=== PATIENT | male | born 1980 | race Caucasian/White ===

== ENCOUNTER 2017-02-11 01:05 | Inpatient (IN) | payer MEDICAID, OTHER ==
[2017-02-11 01:06] VITALS: BMI 32.5
--- NOTE | 2017-02-11 01:27 | ED PDOC ---
Arrival/HPI - General Historian: Patient <Frankie Smith - Last Filed: 02/11/17 01:10> <Juan A Oropeza - Last Filed: 02/11/17 01:32> - General Time Seen by Provider: 02/11/17 01:10 - History of Present Illness Narrative History of Present Illness (Text): 02/11/17 01:11 36 y/o male, psychiatric history including alcohol and drug abuse/bipolar disorder/depression, nkda, biba for psychiatric admission for depression plus the alcohol/drug abuse. Pt. accepted by Dr. Aracelis conroy and sign off to the current ER attending DR. Oropeza which they reviewed the labs/radiology and ekg. Pt. stated that he feels well, no nausea or vomiting, no homicidal or suicidal ideation, no auditory or visual hallucination, no chest pain or shortness of breath, no palpitation, no medical complaints in the ER. (Frankie Smith) Past Medical History - Provider Review Nursing Documentation Reviewed: Yes - Infectious Disease Hx of Infectious Diseases: None - Reproductive Currently : No - Cardiac Hx Cardiac Disorders: No - Pulmonary Hx Respiratory Disorders: No - Neurological Hx Neurological Disorder: No - HEENT Hx HEENT Disorder: No - Renal Hx Renal Disorder: No - Endocrine/Metabolic Hx Endocrine Disorders: No - Hematological/Oncological Hx Blood Disorders: No - Integumentary Hx Dermatological Disorder: No - Musculoskeletal/Rheumatological Hx Musculoskeletal Disorders: No - Gastrointestinal Hx Gastrointestinal Disorders: No - Genitourinary/Gynecological Hx Genitourinary Disorders: No - Psychiatric Hx Psychophysiologic Disorder: Yes Hx Depression: Yes Hx Substance Use: No (pt denies) - Surgical History Hx Appendectomy: Yes - Anesthesia Hx Anesthesia: No - Suicidal Assessment Feels Threatened In Home Enviroment: No <Frankie Smith - Last Filed: 02/11/17 01:10> Family/Social History - Physician Review Nursing Documentation Reviewed: Yes Family/Social History: Unknown Family HX Smoking Status: Heavy Smoker > 10 Cigarettes Daily Hx Alcohol Use: Yes Hx Substance Use: No (pt denies) Substance used: Cocaine <Frankie Smith - Last Filed: 02/11/17 01:10> Allergies/Home Meds <Frankie Smith - Last Filed: 02/11/17 01:10> <Juan A Oropeza - Last Filed: 02/11/17 01:32> Allergies/Adverse Reactions: Allergies No Known Allergies Allergy (Verified 01/13/16 13:19) Review of Systems - Review of Systems Constitutional: absent: Fatigue, Fevers Eyes: absent: Vision Changes ENT: absent: Hearing Changes Respiratory: absent: SOB, Cough, Sputum, Wheezing Cardiovascular: absent: Chest Pain Gastrointestinal: absent: Abdominal Pain, Nausea, Vomiting Skin: absent: Rash, Pruritis, Skin Lesions, Laceration, Abscess, Ulcer, Cellulitis Neurological: absent: Headache, Dizziness, Focal Weakness, Gait Changes, Speech Changes, Facial Droop, Disequilibrium, Seizure Psychiatric: absent: Anxiety, Depression, Suicidal Ideation <Frankie Smith - Last Filed: 02/11/17 01:10> Physical Exam Vital Signs Reviewed: Yes Temperature: Afebrile Blood Pressure: Normal Pulse: Regular Respiratory Rate: Normal Appearance: Positive for: Well-Appearing, Non-Toxic, Comfortable Pain Distress: None Mental Status: Positive for: Alert and Oriented X 3 - Systems Exam Head: Present: Atraumatic, Normocephalic Pupils: Present: PERRL Extroacular Muscles: Present: EOMI Conjunctiva: Present: Normal Mouth: Present: Moist Mucous Membranes Neck: Present: Normal Range of Motion Respiratory/Chest: Present: Clear to Auscultation, Good Air Exchange. No: Respiratory Distress, Accessory Muscle Use Cardiovascular: Present: Regular Rate and Rhythm, Normal S1, S2. No: Murmurs Abdomen: Present: Normal Bowel Sounds. No: Tenderness, Distention, Peritoneal Signs Back: Present: Normal Inspection Upper Extremity: Present: Normal Inspection. No: Cyanosis, Edema Lower Extremity: Present: Normal Inspection. No: Edema Neurological: Present: GCS=15, CN II-XII Intact, Speech Normal Skin: Present: Warm, Dry, Normal Color. No: Rashes Psychiatric: Present: Alert, Oriented x 3, Normal Insight, Normal Concentration <Frankie Smith - Last Filed: 02/11/17 01:10> Vital Signs Temp Pulse Resp BP Pulse Ox 02/11/17 01:12 97.7 F 63 18 112/62 97 Medical Decision Making <Frankie Smith - Last Filed: 02/11/17 01:10> <Juan A Oropeza - Last Filed: 02/11/17 01:32> ED Course and Treatment: 02/11/17 01:28 -I reviewed labs/chest x-ray result and ekg copy with Dr. Oropeza, he agreed that the patient is medically clear and stable to be admitted to Dr. Geno Cowart for psychiatric admission. -Dr. Oropeza will put in the admission. (Frankie Smith) - PA / CARD PUNCHING MACHINE OPERATOR / Resident Statement CHAN has reviewed & agrees with the documentation as recorded. <Frankie Smith - Last Filed: 02/11/17 01:10> - PA / CARD PUNCHING MACHINE OPERATOR / Resident Statement CHAN has reviewed & agrees with the documentation as recorded. CHAN has examined the patient and agrees with the treatment plan. <Juan A Oropeza - Last Filed: 02/11/17 01:32> Disposition/Present on Arrival - Present on Arrival Any Indicators Present on Arrival: No History of DVT/PE: No History of Uncontrolled Diabetes: No Urinary Catheter: No History of Decub. Ulcer: No History Surgical Site Infection Following: None - Disposition Have Diagnosis and Disposition been Completed?: Yes Disposition Time: 01:30 Patient Plan: Admission <Frankie Smith - Last Filed: 02/11/17 01:10> <Juan A Oropeza - Last Filed: 02/11/17 01:32> - Disposition Diagnosis: Major depression, Drug abuse, Substance abuse, Alcohol abuse Disposition: HOSPITALIZED Patient Problems: Current Active Problems Problem Status Diagnosed Alcohol use disorder Acute Amphetamine overdose Acute Bipolar 1 disorder Acute DVT prophylaxis Acute Depression Acute Intoxication Acute Psychiatric disorder Acute Suicidal ideations Acute Transaminitis Acute Condition: STABLE
[2017-02-11] MEDS ORDERED: DiphenhydrAMINE 50 mg/ml Inj IM PRN (02:43)
[2017-02-11] MEDS ORDERED: Magnesium Hydroxide Susp 30 ml UD PO PRN (02:49)
[2017-02-11] MEDS ORDERED: Alum-Mag Hydrox-Simethicone Susp (30 mL) PO PRN (02:49)
[2017-02-11 04:00] VITALS: O2SAT 99
[2017-02-11 08:41] LABS: ADD MANUAL DIFF? NO
[2017-02-11 08:44] LABS: BASO # 0.01 K/mm3 (0.0-2.0); BASO % 0.2 % (0.0-3.0); EOS # 0.1 (0.0-0.7); EOS % 1.2 % (1.5-5.0); GRAN # 2.85 (1.4-6.5); GRAN % 49.9 % (50.0-68.0); HEMATOCRIT 38.1 % (42.0-52.0); LYMPH # 2.2 (1.2-3.4); LYMPH % 38.2 % (22.0-35.0); MEAN CORPUSCULAR HEMOGLOBIN 30.8 pg (25.0-35.0); MEAN CORPUSCULAR HGB CONC 36.2 g/dl (31.0-37.0); MEAN PLATELET VOLUME 9.4 fl (7.0-11.0); MONO # 0.6 (0.1-0.6); MONO % 10.5 % (1.0-6.0); PLATELET COUNT 185 10^3/uL (120.0-450.0); RED CELL DISTRIBUTION WIDTH 12.6 % (11.5-14.5); WHITE BLOOD COUNT 5.7 10^3/ul (4.5-11.0)
[2017-02-11 09:13] LABS: ALB/GLOB RATIO 1.3 (1.1-1.8); ALKALINE PHOSPHATASE 54 U/L (38-133); ALT/SGPT 63 U/L (7-56); AST/SGOT 79 U/L (15-59); BILIRUBIN,TOTAL 0.6 mg/dL (0.2-1.3); BLOOD UREA NITROGEN 27 mg/dL (7-21); CALCIUM 8.7 mg/dL (8.4-10.5); CARBON DIOXIDE 25 mmol/L (21-33); CHLORIDE 107 mmol/L (98-107); CHOLESTEROL 143 mg/dL (130-200); GFR AFRICAN-AMERICAN > 60; GLUCOSE,FASTING 105 mg/dL (65-110); GLUCOSE,RANDOM 105 mg/dL (70-110); SODIUM 141 mmol/L (132-148); TOTAL PROTEIN 6.5 g/dL (5.8-8.3)
[2017-02-11 09:31] LABS: FREE T4 0.8 ng/dL (0.78-2.19)
[2017-02-11 09:45] LABS: THYROID STIMULATING HORMONE 1.28 mIU/mL (0.46-4.68)
[2017-02-11] MEDS: Multivitamin With Minerals Tab PO SCH (12:06)
--- NOTE | 2017-02-11 13:15 | CP.PCM.HP ---
<Wojciech Perry - Last Filed: 02/11/17 12:58> History of Present Illness - History of Present Illness History of Present Illness: PARCEL POST [employer]ER CONSULT NOTE CC: "Heroin overdose" HPI: Pt is a 36 y/o male with a PMHx of heroin abuse, alcohol abuse, and bipolar disorder who presented to the ED with depression and recent opiate abuse. Pt reports that he is currently experiencing withdrawal symptoms, including diarrhea, chills, and a headache. Pt denies fever, chest pain, shortness of breath, nausea, and vomiting. Pt denies current suicidal ideation. PMHx: bipolar disorder, alcohol abuse, heroin abuse Home Medications: Seroquel, wellbutrin, topamax Allergies: Sulfa drugs Past Surgical Hx: denies Fam Hx: no significant family hx reported Social Hx: denies tobacco use, reports drinking half a handle of vodka daily, reports using 25 bags of heroin/day via insufflation; reports past hx of IV heroin use Present on Admission - Present on Admission Any Indicators Present on Admission: No Review of Systems - Constitutional Constitutional: Chills, Headache - EENT Eyes: absent: Blurred Vision, Change in Vision Ears: absent: Dizziness Nose/Mouth/Throat: absent: Epistaxis, Nasal Discharge - Cardiovascular Cardiovascular: absent: Chest Pain, Dyspnea, Palpitations - Respiratory Respiratory: absent: Cough, Wheezing - Gastrointestinal Gastrointestinal: Abdominal Pain, Diarrhea - Genitourinary Genitourinary: absent: Dysuria - Musculoskeletal Musculoskeletal: absent: Atrophy - Neurological Neurological: absent: Dizziness - Psychiatric Psychiatric: Depression Past Patient History - Infectious Disease Hx of Infectious Diseases: None - Past Medical History & Family History Past Medical History?: Yes - Past Social History Smoking Status: Heavy Smoker > 10 Cigarettes Daily - CARDIAC Hx Cardiac Disorders: No - PULMONARY Hx Respiratory Disorders: No - NEUROLOGICAL Hx Neurological Disorder: No - HEENT Hx HEENT Problems: No - RENAL Hx Chronic Kidney Disease: No - ENDOCRINE/METABOLIC Hx Endocrine Disorders: No - HEMATOLOGICAL/ONCOLOGICAL Hx Blood Disorders: No - INTEGUMENTARY Hx Dermatological Problems: No - MUSCULOSKELETAL/RHEUMATOLOGICAL Hx Musculoskeletal Disorders: No - GASTROINTESTINAL Hx Gastrointestinal Disorders: No - GENITOURINARY/GYNECOLOGICAL Hx Genitourinary Disorders: No - PSYCHIATRIC Hx Substance Use: Yes - SURGICAL HISTORY Hx Appendectomy: Yes - ANESTHESIA Hx Anesthesia: No Meds Allergies/Adverse Reactions: Allergies Allergy/AdvReac Type Severity Reaction Status Date / Time Sulfa (Sulfonamide Allergy RASH Verified 02/11/17 03:39 Antibiotics) Physical Exam - Constitutional Appears: No Acute Distress - Head Exam Head Exam: ATRAUMATIC, NORMOCEPHALIC - Eye Exam Eye Exam: EOMI Pupil Exam: Miosis - ENT Exam ENT Exam: Mucous Membranes Moist. absent: Mucous Membranes Dry - Respiratory Exam Respiratory Exam: Clear to Auscultation Bilateral. absent: Rales, Rhonchi, Wheezes - Cardiovascular Exam Cardiovascular Exam: +S1, +S2 - GI/Abdominal Exam GI & Abdominal Exam: Normal Bowel Sounds, Soft. absent: Distended, Tenderness - Extremities Exam Extremities exam: Positive for: full ROM. Negative for: pedal edema - Neurological Exam Neurological exam: Alert, Oriented x3 - Psychiatric Exam Psychiatric exam: Normal Mood - Skin Skin Exam: Normal Color, Warm Results - Vital Signs Recent Vital Signs: Last Vital Signs Temp 97.8 F 02/11/17 10:37 Pulse 56 L 02/11/17 10:37 Resp 16 02/11/17 10:37 BP 111/74 02/11/17 10:37 Pulse Ox 99 02/11/17 03:09 - Labs Result Diagrams: 02/11/17 08:30 02/11/17 08:30 Labs: Laboratory Results - last 24 hr 02/11/17 08:30 WBC 5.7 RBC 4.48 Hgb 13.8 L Hct 38.1 L MCV 85.0 MCH 30.8 MCHC 36.2 RDW 12.6 Plt Count 185 MPV 9.4 Gran % 49.9 L Lymph % (Auto) 38.2 H [place] % (Auto) 10.5 H Eos % (Auto) 1.2 L Baso % (Auto) 0.2 Gran # 2.85 Lymph # 2.2 [place] # 0.6 Eos # 0.1 Baso # 0.01 Sodium 141 Potassium 4.0 Chloride 107 Carbon Dioxide 25 Anion Gap 13 BUN 27 H Creatinine 1.1 Est GFR ( Amer) > 60 Est GFR (Non-Af Amer) > 60 Random Glucose 105 Fasting Glucose 105 Calcium 8.7 Total Bilirubin 0.6 AST 79 H ALT 63 H Alkaline Phosphatase 54 Total Protein 6.5 Albumin 3.7 Globulin 2.9 Albumin/Globulin Ratio 1.3 Triglycerides 217 H Cholesterol 143 LDL Cholesterol Direct 80 HDL Cholesterol 31 Free T4 0.80 TSH 3rd Generation 1.28 Assessment & Plan - Assessment and Plan (Free Text) Assessment: Alcohol abuse/withdrawal: Management as per psych Clonidine 0.1 mgpo bid Ativan prn Thiamine 100 mg po qd Folic Acid 1 mg po qd Cessation counseling AST/ALT - 79/63, liekly due to alcohol abuse Opioid withdrawal: Managemen as per psych Cessation counseling Bipolar disorder: Management as per psych Medicine signing off. Thank you for this interesting consult. Please reconsult if necessary. <Sonido Pyle - Last Filed: 02/11/17 14:37> Results - Vital Signs Recent Vital Signs: Last Vital Signs Temp 97.8 F 02/11/17 10:37 Pulse 56 L 02/11/17 10:37 Resp 16 02/11/17 10:37 BP 111/74 02/11/17 10:37 Pulse Ox 99 02/11/17 03:09 - Labs Result Diagrams: 02/11/17 08:30 02/11/17 08:30 Labs: Laboratory Results - last 24 hr 02/11/17 08:30 WBC 5.7 RBC 4.48 Hgb 13.8 L Hct 38.1 L MCV 85.0 MCH 30.8 MCHC 36.2 RDW 12.6 Plt Count 185 MPV 9.4 Gran % 49.9 L Lymph % (Auto) 38.2 H [place] % (Auto) 10.5 H Eos % (Auto) 1.2 L Baso % (Auto) 0.2 Gran # 2.85 Lymph # 2.2 [place] # 0.6 Eos # 0.1 Baso # 0.01 Sodium 141 Potassium 4.0 Chloride 107 Carbon Dioxide 25 Anion Gap 13 BUN 27 H Creatinine 1.1 Est GFR ( Amer) > 60 Est GFR (Non-Af Amer) > 60 Random Glucose 105 Fasting Glucose 105 Calcium 8.7 Total Bilirubin 0.6 AST 79 H ALT 63 H Alkaline Phosphatase 54 Total Protein 6.5 Albumin 3.7 Globulin 2.9 Albumin/Globulin Ratio 1.3 Triglycerides 217 H Cholesterol 143 LDL Cholesterol Direct 80 HDL Cholesterol 31 Free T4 0.80 TSH 3rd Generation 1.28 Assessment & Plan - Assessment and Plan (Free Text) Assessment: attending note; patient seen and examined with resident in Psychiatric floor. Patient is a 36-year-old male with a history of anxiety depression, heroin abuse , alcohol abuse, elevated LFTs is admitted with depression. Alcohol abuse; complete cessation is strongly advised. Continue multivitamin, thiamine, folic acid. Monitor for withdrawal symptoms. Continue Ativan. Heroin abuse; complete cessation is strongly advised. Needs outpatient rehabilitation. elevated LFT; HIV, hepatitis profile, repeat LFT ordered. monitor for withdrawal symptoms. Case discussed with psychiatrist in detail. Patient is strongly advised to follow-up with PMD of choice upon discharge. Attending/Attestation - Attestation I have personally seen and examined this patient.: Yes I have fully participated in the care of the patient.: Yes I have reviewed all pertinent clinical information: Yes
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
[2017-02-12 08:12] LABS: ALB/GLOB RATIO 1.3 (1.1-1.8); BILIRUBIN,DIRECT 0.3 mg/dL (0.0-0.4); BILIRUBIN,TOTAL 0.5 mg/dL (0.2-1.3); TOTAL PROTEIN 6.7 g/dL (5.8-8.3)
[2017-02-12] MEDS: Multivitamin With Minerals Tab PO SCH (09:51)
--- NOTE | 2017-02-12 14:30 | CP.PCM.PN ---
<Wojciech Perry - Last Filed: 02/12/17 14:27> Subjective - Date & Time of Evaluation Date of Evaluation: 02/12/17 Time of Evaluation: 07:26 - Subjective Subjective: Pt seen and examined. Pt reports withdrawal symptoms are improving. Pt denies fever, chills, chest pain, shortness of breath. Objective - Vital Signs/Intake and Output Vital Signs (last 24 hours): Temp Pulse Resp BP Pulse Ox 97.7 F 60 22 102/64 99 02/12/17 07:00 02/12/17 07:00 02/12/17 07:00 02/12/17 07:00 02/11/17 03:09 - Medications Medications: Current Medications Acetaminophen (Tylenol 325mg Tab) 650 mg PO Q6H PRN PRN Reason: Fever >100.4 F Al Hydrox/Mg Hydrox/Simethicone (Maalox Plus 30 Ml) 30 ml PO DAILY PRN PRN Reason: Upset Stomach Clonidine HCl (Catapres) 0.1 mg PO BID PRN PRN Reason: Withdrawal symptoms Last Admin: 02/11/17 03:04 Dose: 0.1 mg Diphenhydramine HCl (Benadryl) 50 mg IM Q6H PRN PRN Reason: Agitation Folic Acid (Folic Acid) 1 mg PO DAILY [facility] Last Admin: 02/12/17 09:51 Dose: 1 mg Haloperidol Lactate (Haldol) 5 mg IM Q6H PRN; Protocol PRN Reason: Agitation Ibuprofen (Motrin Tab) 800 mg PO Q6H PRN PRN Reason: Pain, Mild (1-3) Loperamide HCl (Imodium) 2 mg PO Q4H PRN PRN Reason: Diarrhea Lorazepam (Ativan) 2 mg IM Q6H PRN; Protocol PRN Reason: Agitation Lorazepam (Ativan) 2 mg PO QID [facility] PRN Reason: Protocol Last Admin: 02/12/17 07:14 Dose: 2 mg Lorazepam (Ativan) 2 mg PO TID PRN; Protocol PRN Reason: for alcohol withdrawals Magnesium Hydroxide (Milk Of Magnesia) 30 ml PO DAILY PRN PRN Reason: Constipation Multivitamins/Minerals (Therapeutic-M Tab) 1 tab PO DAILY [facility] Last Admin: 02/12/17 09:51 Dose: 1 tab Quetiapine Fumarate (Seroquel) 200 mg PO AMHS [facility] PRN Reason: Protocol Last Admin: 02/12/17 09:49 Dose: 200 mg Thiamine HCl (Vitamin B1 Tab) 100 mg PO DAILY [facility] Last Admin: 02/12/17 09:54 Dose: 100 mg Tramadol HCl (Ultram) 50 mg PO TID [facility] Last Admin: 02/12/17 09:50 Dose: 50 mg Trazodone HCl (Desyrel) 100 mg PO HS [facility] Last Admin: 02/11/17 22:18 Dose: 100 mg - Labs Labs: 02/11/17 08:30 02/11/17 08:30 - Constitutional Appears: No Acute Distress - Head Exam Head Exam: ATRAUMATIC, NORMOCEPHALIC - Eye Exam Eye Exam: EOMI, PERRL - ENT Exam ENT Exam: Mucous Membranes Moist. absent: Mucous Membranes Dry - Neck Exam Neck Exam: Full ROM. absent: Lymphadenopathy - Respiratory Exam Respiratory Exam: Clear to Ausculation Bilateral. absent: Rales, Rhonchi, Wheezes - Cardiovascular Exam Cardiovascular Exam: +S1, +S2. absent: Gallop, Rubs - GI/Abdominal Exam GI & Abdominal Exam: Soft. absent: Tenderness - Extremities Exam Extremities Exam: Full ROM. absent: Pedal Edema - Neurological Exam Neurological Exam: Alert, Awake, Oriented x3 - Psychiatric Exam Psychiatric exam: Normal Affect, Normal Mood - Skin Skin Exam: Normal Color, Warm Assessment and Plan - Assessment and Plan (Free Text) Assessment: Alcohol abuse/withdrawal: Management as per psych Clonidine 0.1 mgpo bid Ativan prn Thiamine 100 mg po qd Folic Acid 1 mg po qd Cessation counseling AST/ALT within normal limits Opioid withdrawal: Managemen as per psych Cessation counseling Bipolar disorder: Management as per psych Labs reviewed. Hepatitis Panel negative. HIV pending. <Sonido Pyle - Last Filed: 02/12/17 14:33> Objective - Vital Signs/Intake and Output Vital Signs (last 24 hours): Temp Pulse Resp BP Pulse Ox 97.7 F 60 22 102/64 99 02/12/17 07:00 02/12/17 07:00 02/12/17 07:00 02/12/17 07:00 02/11/17 03:09 - Medications Medications: Current Medications Acetaminophen (Tylenol 325mg Tab) 650 mg PO Q6H PRN PRN Reason: Fever >100.4 F Al Hydrox/Mg Hydrox/Simethicone (Maalox Plus 30 Ml) 30 ml PO DAILY PRN PRN Reason: Upset Stomach Clonidine HCl (Catapres) 0.1 mg PO BID PRN PRN Reason: Withdrawal symptoms Last Admin: 02/11/17 03:04 Dose: 0.1 mg Diphenhydramine HCl (Benadryl) 50 mg IM Q6H PRN PRN Reason: Agitation Folic Acid (Folic Acid) 1 mg PO DAILY [facility] Last Admin: 02/12/17 09:51 Dose: 1 mg Haloperidol Lactate (Haldol) 5 mg IM Q6H PRN; Protocol PRN Reason: Agitation Ibuprofen (Motrin Tab) 800 mg PO Q6H PRN PRN Reason: Pain, Mild (1-3) Loperamide HCl (Imodium) 2 mg PO Q4H PRN PRN Reason: Diarrhea Lorazepam (Ativan) 2 mg IM Q6H PRN; Protocol PRN Reason: Agitation Lorazepam (Ativan) 2 mg PO QID [facility] PRN Reason: Protocol Last Admin: 02/12/17 07:14 Dose: 2 mg Lorazepam (Ativan) 2 mg PO TID PRN; Protocol PRN Reason: for alcohol withdrawals Magnesium Hydroxide (Milk Of Magnesia) 30 ml PO DAILY PRN PRN Reason: Constipation Multivitamins/Minerals (Therapeutic-M Tab) 1 tab PO DAILY [facility] Last Admin: 02/12/17 09:51 Dose: 1 tab Quetiapine Fumarate (Seroquel) 200 mg PO AMHS [facility] PRN Reason: Protocol Last Admin: 02/12/17 09:49 Dose: 200 mg Thiamine HCl (Vitamin B1 Tab) 100 mg PO DAILY [facility] Last Admin: 02/12/17 09:54 Dose: 100 mg Tramadol HCl (Ultram) 50 mg PO TID [facility] Last Admin: 02/12/17 09:50 Dose: 50 mg Trazodone HCl (Desyrel) 100 mg PO HS [facility] Last Admin: 02/11/17 22:18 Dose: 100 mg - Labs Labs: 02/11/17 08:30 02/11/17 08:30 Assessment and Plan - Assessment and Plan (Free Text) Assessment: attending note; Patient is a 36-year-old male with a history of anxiety depression, heroin abuse , alcohol abuse, elevated LFTs is admitted with depression. Alcohol abuse; complete cessation is strongly advised. Continue multivitamin, thiamine, folic acid. Withdrawal symptoms improving. Continue Ativan. Heroin abuse; complete cessation is strongly advised. Needs outpatient rehabilitation. elevated LFT; repeat LFTs negative. Hepatitis profile is negative. HIV is pending. results discussed with patient. Case discussed with psychiatrist in detail. Patient is strongly advised to follow-up with PMD of choice upon discharge. Attending/Attestation - Attestation I have personally seen and examined this patient.: Yes I have fully participated in the care of the patient.: Yes I have reviewed all pertinent clinical information, including history, physical exam and plan: Yes
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
[2017-02-13] MEDS: Multivitamin With Minerals Tab PO SCH (08:46)
[2017-02-13 08:57] VITALS: RESP 20
--- NOTE | 2017-02-13 09:11 | PCM.PYCHPN ---
Psychiatric Progress Note - Psychiatric Progress Note Patient seen today, length of contact: 25 minutes Patient Chief Complaint: "okay" Problems Identified/Issues Discussed: I reviewed assessment and recent notes. Patient was interviewed at bedside. Patient is calm, fairly groomed and oriented x3. He reports that his mood is "okay" and in general, patient denies having any new issues or concerns. Affect is a little constricted but not profoundly withdrawn. Responses are relevant to questioning and he does not appear to be responding internal stimuli. Delusions were not elicited during questioning today. Patient denies any new discomfort or pain and has been tolerating current medications. Staff notes indicate that patient has been fair control though has refused groups. Tends to keep to himself. There were no behavioral issues overnight. Diagnostic Results: schizoaffective d/o as per h/o r/o bipolar disorder Opioid dependence Alcohol use disorder Alcohol withdrawal syndrome opioid withdrawal syndrome rrule out substance-induced status post overdose on heroin Medication Change: No ( ) Medical Record Reviewed: Yes (notes, reports, labs, vitals) Mental Status Examination - Cognitive Function Orientation: Person, Place Memory: Impaired Attention: Poor Concentration: Poor Association: WNL Fund of Knowledge: WNL - Mood Mood: Depressed ("okay"), Anxious - Affect Affect: Constricted, Flat - Speech Speech: Appropriate - Formal Thought Process Formal Thought Process: Other ( scattered, responses are relevant to questioning ) - Suicidal Ideation Suicidal Ideation: No - Homicidal Ideation Homicidal Ideation: No Goal/Treatment Plan - Goal/Treatment Plan Need for Continued Stay: Remain at risks for inpatient hospitalization, Severe depression anxiety, Discharge may exacerbated symptoms, Severe functional impairment Progress Toward Problem(s) and Goals/Treatment Plan: * c/w current tx and plan * Taper Ativan 2 mg q6 to 2 mg q8 on 02/13/17 * No new weekend labs * Vitals reviewed and noted below: Selected Entries 02/13/17 08:57 Temperature 97.7 F Pulse Rate 65 Respiratory 20 Rate Blood Pressure 100/69 Estimated Date of D/C: 02/18/17 (we'll monitor closely)
[2017-02-14] MEDS: Multivitamin With Minerals Tab PO SCH (09:07)
--- NOTE | 2017-02-14 09:34 | PCM.PYCHPN ---
Psychiatric Progress Note - Psychiatric Progress Note Patient seen today, length of contact: 25 minutes Patient Chief Complaint: "okay" Problems Identified/Issues Discussed: I reviewed recent notes and met with patient at bedside. Patient is calm, fairly groomed and oriented x3. He says that his mood is "good" and reports hopefulness. In general, patient denies having any new issues or concerns. Slept well. Affect is constricted but not profoundly withdrawn. He is a little more reactive and focused today. Staff have noted patient to appear guarded which I agree with. His responses are relevant to questioning and he does not appear to be responding internal stimuli. Delusions were not elicited during questioning over the weekend. Patient continues to deny any new discomfort or pain and has been tolerating current medications. Staff notes also indicate that patient appears depressed and spends a lot of time in his room. . Tends to keep to himself. There were no behavioral issues over the weekend . Diagnostic Results: schizoaffective d/o as per h/o r/o bipolar disorder Opioid dependence Alcohol use disorder Alcohol withdrawal syndrome opioid withdrawal syndrome rrule out substance-induced status post overdose on heroin Medication Change: Yes (tapered ativan to 2 mg q12 on 02/14/17) Medical Record Reviewed: Yes (notes, reports, labs, vitals) Mental Status Examination - Cognitive Function Orientation: Person, Place, Situation Memory: Impaired Attention: WNL Concentration: Poor Association: WNL Fund of Knowledge: WNL - Mood Mood: Depressed ("good"), Anxious - Affect Affect: Constricted, Flat, Other (guarded) - Speech Speech: Appropriate - Formal Thought Process Formal Thought Process: No Impairment - Suicidal Ideation Suicidal Ideation: No - Homicidal Ideation Homicidal Ideation: No Goal/Treatment Plan - Goal/Treatment Plan Need for Continued Stay: Remain at risks for inpatient hospitalization, Severe depression anxiety, Discharge may exacerbated symptoms, Severe functional impairment Progress Toward Problem(s) and Goals/Treatment Plan: * c/w current tx and plan * Taper Ativan 2 mg q6 to 2 mg q8 on 02/13/17 and 2 mg q12 on 02/14/17 * No new weekend labs * Vitals reviewed and noted below: Selected Entries 02/14/17 07:43 Temperature 97.4 F L Pulse Rate 58 L Respiratory 20 Rate Blood Pressure 111/75 Estimated Date of D/C: 02/18/17 (we'll monitor closely)
[2017-02-15] MEDS: Multivitamin With Minerals Tab PO SCH (08:45)
--- NOTE | 2017-02-15 14:04 | PCM.PYCHPN ---
Psychiatric Progress Note - Psychiatric Progress Note Patient seen today, length of contact: 30min Patient Chief Complaint: "I feel little better, I still have my moments..., but overall is better" Problems Identified/Issues Discussed: Suicide/ homicide prevention, past psychiatric h/o, current psychiatric symptoms , medical problems, risk/benefits and alternatives of medications, medications compliance, coping strategies, substance abuse h/o, relapse prevention, importance of follow up with psychiatrist and therapist, discharge plan. Medical Problems: denied medical h/o pt is obese alcohol withdrawal Diagnostic Results: 02/11/17 08:30 02/11/17 08:30 Lab Results 02/12/17 07:00: Total Bilirubin 0.5, Direct Bilirubin 0.3, AST 59, ALT 55, Alkaline Phosphatase 57, Total Protein 6.7, Albumin 3.8, Globulin 3.0, Albumin/ Globulin Ratio 1.3 02/12/17 06:00: Hepatitis A IgM Ab Negative, Hep Bs Antigen Negative, Hep B Core IgM Ab Negative, Hepatitis C Antibody Negative 02/11/17 08:30: WBC 5.7, RBC 4.48, Hgb 13.8 L, Hct 38.1 L, MCV 85.0, MCH 30.8, MCHC 36.2, RDW 12.6, Plt Count 185, MPV 9.4, Gran % 49.9 L, Lymph % (Auto) 38.2 H, [place] % (Auto) 10.5 H, Eos % (Auto) 1.2 L, Baso % (Auto) 0.2, Gran # 2.85, Lymph # 2.2, [place] # 0.6, Eos # 0.1, Baso # 0.01, Sodium 141, Potassium 4.0, Chloride 107, Carbon Dioxide 25, Anion Gap 13, BUN 27 H, Creatinine 1.1, Est GFR ( Amer) > 60, Est GFR (Non-Af Amer) > 60, Random Glucose 105, Fasting Glucose 105, Calcium 8.7, Total Bilirubin 0.6, AST 79 H, ALT 63 H, Alkaline Phosphatase 54, Total Protein 6.5, Albumin 3.7, Globulin 2.9, Albumin/ Globulin Ratio 1.3, Triglycerides 217 H, Cholesterol 143, LDL Cholesterol Direct 80, HDL Cholesterol 31, Free T4 0.80, TSH 3rd Generation 1.28, RPR Nonreactive Vital Signs Temp Pulse Resp BP Pulse Ox 02/12/17 07:00 97.7 F 60 22 102/64 02/11/17 18:00 64 149/96 H 02/11/17 10:37 97.8 F 56 L 16 111/74 02/11/17 03:09 98.7 F 95 H 20 140/82 99 02/11/17 01:12 97.7 F 63 18 112/62 97 Temp Pulse Resp BP Pulse Ox 98.3 F 70 20 107/59 L 99 02/15/17 07:54 02/15/17 07:54 02/15/17 07:54 02/15/17 07:54 02/11/17 03:09 DSM 5 Symptoms Update: shortly patient is 36 years old male with self reported history of schizophrenia versus schizoaffective disorder, alcohol use disorder, opioid use disorder, multiple psychiatric admissions in the past, pt was transferred from [facility] where he was brought by EMS after pt was found unresponsive in the community, as per pt he overdosed on 25bags of heroin that day, prior to that pt was drinking excessively. Pt is homeless, lost his job, poor support from the family, pt needs further evaluation and stabilization , medications titration. As per report from [facility], pt needed to have 2x narcans, pt had pulse ox in 80%. pt was agitated, combative, psychotic, needed to have IM haldol and ativan. Pt was medically stable and transferred to the psych unit here in [place], transfer was uneventful. pt was seen and examined in his room today, pt presented to have fair personal hygiene, presented to be less irritable, flat affect. Patient reported being depressed but hopeful for the future willing to go to the inpatient rehab and after that "I want to go to the half way house". Patient is not sure if his family is willing to help him still did not have a chance to speak to his father. withdrawals are better, VS are stable. Pt denied v/a/t hallucinations, but pt has h/o voices and feeing paranoid, thought process is more organized. vision tolerated medications well, no side effects observed or reported. AIMS 0 , no EPS. Impression: DSM 5 Diagnosis: schizoaffective d/o as per h/o r/o bipolar disorder Opioid dependence Alcohol use disorder Alcohol withdrawal syndrome opioid withdrawal syndrome rrule out substance-induced status post overdose on heroin Medication Change: Yes (Seroquel increased, Ativan decreased) Medical Record Reviewed: Yes (notes, reports, labs, vitals) Consults ordered or reviewed: medical consult appreciated see notes for more detailed information Mental Status Examination - Cognitive Function Orientation: Person, Place, Situation Memory: Impaired Attention: WNL Concentration: Poor Association: WNL Fund of Knowledge: WNL - Mood Mood: Depressed ("good"), Anxious - Affect Affect: Constricted (and irritable) - Speech Speech: Appropriate - Formal Thought Process Formal Thought Process: No Impairment - Suicidal Ideation Suicidal Ideation: No - Homicidal Ideation Homicidal Ideation: No Goal/Treatment Plan - Goal/Treatment Plan Need for Continued Stay: Remain at risks for inpatient hospitalization, Severe depression anxiety, Discharge may exacerbated symptoms, Severe functional impairment Progress Toward Problem(s) and Goals/Treatment Plan: milieu structure and supportive therapy Ativan 2 mg bid, scheduled for alcohol withdrawals Ativan as needed for breakthrough alcohol withdrawal symptoms Multivitamins by mouth daily Folic acid 1 mg daily thiamine 100 mg daily Seroquel 300 mg twice a day for psychotic symptoms and mood stabilization Trazodone 100 mg at the nighttime for insomnia and depression When necessary orders in case of agitation clonidine 0.1mg tid prn for opioid withdrawals immodium prn for diarrhea tramadol for pain, decreased Social work evaluation for possible rehabilitation upon discharge Will monitor closely Medical consult appreciated Estimated Date of D/C: 02/18/17 (we'll monitor closely)
[2017-02-16] MEDS: Multivitamin With Minerals Tab PO SCH (09:11)
--- NOTE | 2017-02-16 15:20 | PCM.PYCHPN ---
Psychiatric Progress Note - Psychiatric Progress Note Patient seen today, length of contact: 30min Patient Chief Complaint: "I M more depressed now" Problems Identified/Issues Discussed: Suicide/ homicide prevention, past psychiatric h/o, current psychiatric symptoms , medical problems, risk/benefits and alternatives of medications, medications compliance, coping strategies, substance abuse h/o, relapse prevention, importance of follow up with psychiatrist and therapist, discharge plan. Medical Problems: denied medical h/o pt is obese alcohol withdrawal Diagnostic Results: 02/11/17 08:30 02/11/17 08:30 Lab Results 02/12/17 07:00: Total Bilirubin 0.5, Direct Bilirubin 0.3, AST 59, ALT 55, Alkaline Phosphatase 57, Total Protein 6.7, Albumin 3.8, Globulin 3.0, Albumin/ Globulin Ratio 1.3 02/12/17 06:00: Hepatitis A IgM Ab Negative, Hep Bs Antigen Negative, Hep B Core IgM Ab Negative, Hepatitis C Antibody Negative 02/11/17 08:30: WBC 5.7, RBC 4.48, Hgb 13.8 L, Hct 38.1 L, MCV 85.0, MCH 30.8, MCHC 36.2, RDW 12.6, Plt Count 185, MPV 9.4, Gran % 49.9 L, Lymph % (Auto) 38.2 H, Clinch % (Auto) 10.5 H, Eos % (Auto) 1.2 L, Baso % (Auto) 0.2, Gran # 2.85, Lymph # 2.2, Clinch # 0.6, Eos # 0.1, Baso # 0.01, Sodium 141, Potassium 4.0, Chloride 107, Carbon Dioxide 25, Anion Gap 13, BUN 27 H, Creatinine 1.1, Est GFR ( Amer) > 60, Est GFR (Non-Af Amer) > 60, Random Glucose 105, Fasting Glucose 105, Calcium 8.7, Total Bilirubin 0.6, AST 79 H, ALT 63 H, Alkaline Phosphatase 54, Total Protein 6.5, Albumin 3.7, Globulin 2.9, Albumin/ Globulin Ratio 1.3, Triglycerides 217 H, Cholesterol 143, LDL Cholesterol Direct 80, HDL Cholesterol 31, Free T4 0.80, TSH 3rd Generation 1.28, RPR Nonreactive Vital Signs Temp Pulse Resp BP Pulse Ox 02/12/17 07:00 97.7 F 60 22 102/64 02/11/17 18:00 64 149/96 H 02/11/17 10:37 97.8 F 56 L 16 111/74 02/11/17 03:09 98.7 F 95 H 20 140/82 99 02/11/17 01:12 97.7 F 63 18 112/62 97 Temp Pulse Resp BP Pulse Ox 98.3 F 70 20 107/59 L 99 02/15/17 07:54 02/15/17 07:54 02/15/17 07:54 02/15/17 07:54 02/11/17 03:09 Temp Pulse Resp BP Pulse Ox 97.1 F L 69 20 90/50 L 99 02/16/17 07:02 02/16/17 07:02 02/16/17 07:02 02/16/17 07:02 02/11/17 03:09 DSM 5 Symptoms Update: shortly patient is 36 years old male with self reported history of schizophrenia versus schizoaffective disorder, alcohol use disorder, opioid use disorder, multiple psychiatric admissions in the past, pt was transferred from [facility] where he was brought by EMS after pt was found unresponsive in the community, as per pt he overdosed on 25bags of heroin that day, prior to that pt was drinking excessively. Pt is homeless, lost his job, poor support from the family, pt needs further evaluation and stabilization , medications titration. pt was seen and examined in his room today, pt presented to have fair personal hygiene, presented to be less irritable, flat affect. 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 withdrawals are better, VS are stable. Pt denied v/a/t hallucinations, but pt has h/o voices and feeing paranoid, thought process is more organized. vision tolerated medications well, no side effects observed or reported. AIMS 0 , no EPS. Impression: DSM 5 Diagnosis: schizoaffective d/o as per h/o r/o bipolar disorder Opioid dependence Alcohol use disorder Alcohol withdrawal syndrome opioid withdrawal syndrome rrule out substance-induced status post overdose on heroin Medication Change: Yes (Wellbutrin started, Vistaril started) Medical Record Reviewed: Yes (notes, reports, labs, vitals) Consults ordered or reviewed: medical consult appreciated see notes for more detailed information Mental Status Examination - Cognitive Function Orientation: Person, Place, Situation Memory: Impaired Attention: WNL Concentration: Poor Association: WNL Fund of Knowledge: WNL - Mood Mood: Depressed (I feel more depressed today), Anxious - Affect Affect: Constricted (and irritable) - Speech Speech: Appropriate - Formal Thought Process Formal Thought Process: No Impairment - Suicidal Ideation Suicidal Ideation: No - Homicidal Ideation Homicidal Ideation: No Goal/Treatment Plan - Goal/Treatment Plan Need for Continued Stay: Remain at risks for inpatient hospitalization, Severe depression anxiety, Discharge may exacerbated symptoms, Severe functional impairment Progress Toward Problem(s) and Goals/Treatment Plan: milieu structure and supportive therapy Ativan 1 mg bid, scheduled for alcohol withdrawals Vistaril 50 mg 3 times a day as needed for anxiety Wellbutrin 75 mg twice a day for depressive symptoms Ativan as needed for breakthrough alcohol withdrawal symptoms Multivitamins by mouth daily Folic acid 1 mg daily thiamine 100 mg daily Seroquel 300 mg twice a day for psychotic symptoms and mood stabilization Trazodone 100 mg at the nighttime for insomnia and depression When necessary orders in case of agitation clonidine 0.1mg tid prn for opioid withdrawals immodium prn for diarrhea tramadol for pain, decreased Social work evaluation for possible rehabilitation upon discharge Will monitor closely Medical consult appreciated Estimated Date of D/C: 02/18/17 (we'll monitor closely)
[2017-02-17] MEDS: Multivitamin With Minerals Tab PO SCH (08:44)
--- NOTE | 2017-02-17 15:38 | PCM.PYCHPN ---
Psychiatric Progress Note - Psychiatric Progress Note Patient seen today, length of contact: 30min Patient Chief Complaint: "I cannot understand how I could use so much heroin..." Problems Identified/Issues Discussed: Suicide/ homicide prevention, past psychiatric h/o, current psychiatric symptoms , medical problems, risk/benefits and alternatives of medications, medications compliance, coping strategies, substance abuse h/o, relapse prevention, importance of follow up with psychiatrist and therapist, discharge plan. Medical Problems: denied medical h/o pt is obese alcohol withdrawal Diagnostic Results: 02/11/17 08:30 02/11/17 08:30 Lab Results 02/12/17 07:00: Total Bilirubin 0.5, Direct Bilirubin 0.3, AST 59, ALT 55, Alkaline Phosphatase 57, Total Protein 6.7, Albumin 3.8, Globulin 3.0, Albumin/ Globulin Ratio 1.3 02/12/17 06:00: Hepatitis A IgM Ab Negative, Hep Bs Antigen Negative, Hep B Core IgM Ab Negative, Hepatitis C Antibody Negative 02/11/17 08:30: WBC 5.7, RBC 4.48, Hgb 13.8 L, Hct 38.1 L, MCV 85.0, MCH 30.8, MCHC 36.2, RDW 12.6, Plt Count 185, MPV 9.4, Gran % 49.9 L, Lymph % (Auto) 38.2 H, Colbert % (Auto) 10.5 H, Eos % (Auto) 1.2 L, Baso % (Auto) 0.2, Gran # 2.85, Lymph # 2.2, Colbert # 0.6, Eos # 0.1, Baso # 0.01, Sodium 141, Potassium 4.0, Chloride 107, Carbon Dioxide 25, Anion Gap 13, BUN 27 H, Creatinine 1.1, Est GFR ( Amer) > 60, Est GFR (Non-Af Amer) > 60, Random Glucose 105, Fasting Glucose 105, Calcium 8.7, Total Bilirubin 0.6, AST 79 H, ALT 63 H, Alkaline Phosphatase 54, Total Protein 6.5, Albumin 3.7, Globulin 2.9, Albumin/ Globulin Ratio 1.3, Triglycerides 217 H, Cholesterol 143, LDL Cholesterol Direct 80, HDL Cholesterol 31, Free T4 0.80, TSH 3rd Generation 1.28, RPR Nonreactive Vital Signs Temp Pulse Resp BP Pulse Ox 02/12/17 07:00 97.7 F 60 22 102/64 02/11/17 18:00 64 149/96 H 02/11/17 10:37 97.8 F 56 L 16 111/74 02/11/17 03:09 98.7 F 95 H 20 140/82 99 02/11/17 01:12 97.7 F 63 18 112/62 97 Temp Pulse Resp BP Pulse Ox 98.3 F 70 20 107/59 L 99 02/15/17 07:54 02/15/17 07:54 02/15/17 07:54 02/15/17 07:54 02/11/17 03:09 Temp Pulse Resp BP Pulse Ox 97.1 F L 69 20 90/50 L 99 02/16/17 07:02 02/16/17 07:02 02/16/17 07:02 02/16/17 07:02 02/11/17 03:09 Temp Pulse Resp BP Pulse Ox 97.6 F 60 20 124/67 99 02/17/17 07:27 02/17/17 07:27 02/17/17 07:27 02/17/17 07:27 02/11/17 03:09 DSM 5 Symptoms Update: shortly patient is 36 years old male with self reported history of schizophrenia versus schizoaffective disorder, alcohol use disorder, opioid use disorder, multiple psychiatric admissions in the past, pt was transferred from [facility] where he was brought by EMS after pt was found unresponsive in the community, as per pt he overdosed on 25bags of heroin that day, prior to that pt was drinking excessively. Pt is homeless, lost his job, poor support from the family, pt needs further evaluation and stabilization , medications titration. pt was seen and examined in his room today, pt presented to have fair personal hygiene, presented to be less irritable, flat affect. complained of being depressed, feeling of hopeless, reported that his anxiety is better after Vistaril was started, patient reported that he wants to go to rehabilitation versus [facility]. [facility] does not remember how he presented in the emergency room back there, patient said"I cannot understand how I could use so much heroin, I definitely feel happy that I'm alive". withdrawals are better, VS are stable. Pt denied v/a/t hallucinations, but pt has h/o voices and feeing paranoid, thought process is more organized. vision tolerated medications well, no side effects observed or reported. AIMS 0 , no EPS. Impression: DSM 5 Diagnosis: schizoaffective d/o as per h/o r/o bipolar disorder Opioid dependence Alcohol use disorder Alcohol withdrawal syndrome opioid withdrawal syndrome rrule out substance-induced status post overdose on heroin Medication Change: Yes (ativan was tapered down) Medical Record Reviewed: Yes (notes, reports, labs, vitals) Consults ordered or reviewed: medical consult appreciated see notes for more detailed information Mental Status Examination - Cognitive Function Orientation: Person, Place, Situation Memory: Impaired Attention: WNL Concentration: Poor Association: WNL Fund of Knowledge: WNL - Mood Mood: Depressed, Anxious - Affect Affect: Constricted (and irritable) - Speech Speech: Appropriate - Formal Thought Process Formal Thought Process: No Impairment - Suicidal Ideation Suicidal Ideation: No - Homicidal Ideation Homicidal Ideation: No Goal/Treatment Plan - Goal/Treatment Plan Need for Continued Stay: Remain at risks for inpatient hospitalization, Severe depression anxiety, Discharge may exacerbated symptoms, Severe functional impairment Progress Toward Problem(s) and Goals/Treatment Plan: milieu structure and supportive therapy Ativan 0.5mg bid, scheduled for alcohol withdrawals Vistaril 50 mg 3 times a day as needed for anxiety Wellbutrin 75 mg twice a day for depressive symptoms Ativan as needed for breakthrough alcohol withdrawal symptoms Multivitamins by mouth daily Folic acid 1 mg daily thiamine 100 mg daily Seroquel 300 mg twice a day for psychotic symptoms and mood stabilization Trazodone 100 mg at the nighttime for insomnia and depression When necessary orders in case of agitation clonidine 0.1mg tid prn for opioid withdrawals immodium prn for diarrhea tramadol for pain, decreased Social work evaluation for possible rehabilitation upon discharge Will monitor closely Medical consult appreciated Estimated Date of D/C: 02/19/17 (we'll monitor closely)
[2017-02-18] MEDS: Multivitamin With Minerals Tab PO SCH (08:21)
--- NOTE | 2017-02-18 15:09 | PCM.PYCHPN ---
Psychiatric Progress Note - Psychiatric Progress Note Patient seen today, length of contact: 30min Patient Chief Complaint: "I feel better" Problems Identified/Issues Discussed: Suicide/ homicide prevention, past psychiatric h/o, current psychiatric symptoms , medical problems, risk/benefits and alternatives of medications, medications compliance, coping strategies, substance abuse h/o, relapse prevention, importance of follow up with psychiatrist and therapist, discharge plan. Medical Problems: denied medical h/o pt is obese alcohol withdrawal Diagnostic Results: 02/11/17 08:30 02/11/17 08:30 Lab Results 02/12/17 07:00: Total Bilirubin 0.5, Direct Bilirubin 0.3, AST 59, ALT 55, Alkaline Phosphatase 57, Total Protein 6.7, Albumin 3.8, Globulin 3.0, Albumin/ Globulin Ratio 1.3 02/12/17 06:00: Hepatitis A IgM Ab Negative, Hep Bs Antigen Negative, Hep B Core IgM Ab Negative, Hepatitis C Antibody Negative 02/11/17 08:30: WBC 5.7, RBC 4.48, Hgb 13.8 L, Hct 38.1 L, MCV 85.0, MCH 30.8, MCHC 36.2, RDW 12.6, Plt Count 185, MPV 9.4, Gran % 49.9 L, Lymph % (Auto) 38.2 H, Worth % (Auto) 10.5 H, Eos % (Auto) 1.2 L, Baso % (Auto) 0.2, Gran # 2.85, Lymph # 2.2, Worth # 0.6, Eos # 0.1, Baso # 0.01, Sodium 141, Potassium 4.0, Chloride 107, Carbon Dioxide 25, Anion Gap 13, BUN 27 H, Creatinine 1.1, Est GFR ( Amer) > 60, Est GFR (Non-Af Amer) > 60, Random Glucose 105, Fasting Glucose 105, Calcium 8.7, Total Bilirubin 0.6, AST 79 H, ALT 63 H, Alkaline Phosphatase 54, Total Protein 6.5, Albumin 3.7, Globulin 2.9, Albumin/ Globulin Ratio 1.3, Triglycerides 217 H, Cholesterol 143, LDL Cholesterol Direct 80, HDL Cholesterol 31, Free T4 0.80, TSH 3rd Generation 1.28, RPR Nonreactive Vital Signs Temp Pulse Resp BP Pulse Ox 02/12/17 07:00 97.7 F 60 22 102/64 02/11/17 18:00 64 149/96 H 02/11/17 10:37 97.8 F 56 L 16 111/74 02/11/17 03:09 98.7 F 95 H 20 140/82 99 02/11/17 01:12 97.7 F 63 18 112/62 97 Temp Pulse Resp BP Pulse Ox 98.3 F 70 20 107/59 L 99 02/15/17 07:54 02/15/17 07:54 02/15/17 07:54 02/15/17 07:54 02/11/17 03:09 Temp Pulse Resp BP Pulse Ox 97.1 F L 69 20 90/50 L 99 02/16/17 07:02 02/16/17 07:02 02/16/17 07:02 02/16/17 07:02 02/11/17 03:09 Temp Pulse Resp BP Pulse Ox 97.6 F 60 20 124/67 99 02/17/17 07:27 02/17/17 07:27 02/17/17 07:27 02/17/17 07:27 02/11/17 03:09 Temp Pulse Resp BP Pulse Ox 98 F 60 20 108/67 99 02/18/17 07:01 02/18/17 07:01 02/18/17 07:01 02/18/17 07:01 02/11/17 03:09 DSM 5 Symptoms Update: shortly patient is 36 years old male with self reported history of schizophrenia versus schizoaffective disorder, alcohol use disorder, opioid use disorder, multiple psychiatric admissions in the past, pt was transferred from [facility] where he was brought by EMS after pt was found unresponsive in the community, as per pt he overdosed on 25bags of heroin that day, prior to that pt was drinking excessively. Pt is homeless, lost his job, poor support from the family, pt needs further evaluation and stabilization , medications titration. pt was seen and examined inext to the nursing station, pt presented to have fair personal hygiene, presented to be less irritable, flat affect. depressive symptoms are better, deneid thoughts of harming self or others, sleep is improving, no withdrawals, appetite is good. withdrawals are better, VS are stable. Pt denied v/a/t hallucinations, but pt has h/o voices and feeing paranoid, thought process is more organized. vision tolerated medications well, no side effects observed or reported. AIMS 0 , no EPS. Impression: DSM 5 Diagnosis: schizoaffective d/o as per h/o r/o bipolar disorder Opioid dependence Alcohol use disorder Alcohol withdrawal syndrome opioid withdrawal syndrome rrule out substance-induced status post overdose on heroin Medication Change: Yes (ativan was tapered down) Medical Record Reviewed: Yes (notes, reports, labs, vitals) Consults ordered or reviewed: medical consult appreciated see notes for more detailed information Mental Status Examination - Cognitive Function Orientation: Person, Place, Situation Memory: Impaired Attention: WNL Concentration: Poor (better) Association: WNL Fund of Knowledge: WNL - Mood Mood: Depressed ("I feel better") - Affect Affect: Constricted (more reactive today) - Speech Speech: Appropriate - Formal Thought Process Formal Thought Process: No Impairment - Suicidal Ideation Suicidal Ideation: No - Homicidal Ideation Homicidal Ideation: No Goal/Treatment Plan - Goal/Treatment Plan Need for Continued Stay: Remain at risks for inpatient hospitalization, Severe depression anxiety, Discharge may exacerbated symptoms, Severe functional impairment Progress Toward Problem(s) and Goals/Treatment Plan: milieu structure and supportive therapy Ativan 0.5mg bid, d/c Vistaril 50 mg 3 times a day as needed for anxiety Wellbutrin 75 mg twice a day for depressive symptoms Ativan as needed for breakthrough alcohol withdrawal symptoms Multivitamins by mouth daily Folic acid 1 mg daily thiamine 100 mg daily Seroquel 300 mg twice a day for psychotic symptoms and mood stabilization Trazodone 100 mg at the nighttime for insomnia and depression When necessary orders in case of agitation clonidine 0.1mg tid prn for opioid withdrawals immodium prn for diarrhea tramadol for pain, decreased Social work evaluation for possible rehabilitation upon discharge Will monitor closely Medical consult appreciated Estimated Date of D/C: 02/19/17 (we'll monitor closely)
[2017-02-19 07:50] VITALS: BP 114/77; PULSE 77; TEMP 98.2
[2017-02-19] MEDS: Multivitamin With Minerals Tab PO SCH (09:24)
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
== END 2017-02-19 12:19 | disposition home or self-care (01) | DRG 744 ==
LOC: ED 01:05 → ERH 01:30 → PSYC 02:33
PROVIDERS: ADMIT Psychiatry & Neurology Psychiatry; ATTEND Psychiatry & Neurology Psychiatry
DX: F19.24 Other psychoactive substance dependence with psychoactive substance-induced mood disorder (principal); F25.9 Schizoaffective disorder, unspecified; F11.23 Opioid dependence with withdrawal; F10.231 Alcohol dependence with withdrawal delirium; F19.221 Other psychoactive substance dependence with intoxication delirium; F17.210 Nicotine dependence, cigarettes, uncomplicated; Y90.9 Presence of alcohol in blood, level not specified; E66.9 Obesity, unspecified; T40.1X1D Poisoning by heroin, accidental (unintentional), subsequent encounter; Z68.31 Body mass index [BMI] 31.0-31.9, adult; Z59.0 Homelessness; Z91.14 Patient's other noncompliance with medication regimen